=== PATIENT | male | born 1990 | race Caucasian/White ===

== ENCOUNTER 2021-05-04 22:48 | Emergency (ER) | payer BC, OTHER ==
[~2021-05-04] VITALS: Ht 180.3 cm; Wt 81.8 kg
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
[2021-05-05] MEDS ORDERED: ONDANSETRON 4MG/2ML VIAL IV ONE (05:45)
[2021-05-05] MEDS ORDERED: NS 1,000 ML IV ONE (05:45)
[2021-05-05 06:45] VITALS: BP 129/74
[2021-05-05] MEDS ORDERED: OMEP-218 PO (06:50)
[2021-05-05] MEDS ORDERED: ONDA4TAB6 PO (06:54)
== END 2021-05-05 07:11 | disposition home or self-care (01) ==
LOC: M ED 22:48
DX: S06.0X0A Concussion without loss of consciousness, initial encounter (principal); W16.712A Jumping or diving from boat striking water surface causing other injury, initial encounter; Y92.828 Other wilderness area as the place of occurrence of the external cause; Y93.39 Activity, other involving climbing, rappelling and jumping off; Y99.9 Unspecified external cause status; F10.10 Alcohol abuse, uncomplicated
CPT/HCPCS: 70450; 82077; 96361; 96374; 99284; J2405